=== PATIENT | male | born 1965 | race Caucasian/White ===

== ENCOUNTER 2018-06-09 12:20 | Emergency (ER) | payer OTHER, SELFPAY ==
[2018-06-09 12:21] VITALS: BMI 28.8
[2018-06-09 12:54] VITALS: BP 115/64; PULSE 75; RESP 16; O2SAT 100
--- NOTE | 2018-06-09 13:59 | ED PDOC ---
HPI: Male Pain Time Seen by Provider: 06/09/18 13:10 Chief Complaint (Nursing): Male Genitourinary Chief Complaint (Provider): External Hemorrhoid History Per: Patient History/Exam Limitations: no limitations Onset/Duration Of Symptoms: Days, Waxing/Waning Current Symptoms Are (Timing): Still Present Severity: Mild Pain Scale Rating Of: 4 Quality Of Discomfort: Sharp, Aching, "Pain" Associated Symptoms: denies: Fever, Chills, Nausea, Vomiting, Diarrhea Alleviating Factors: None (Pt presents to the ED complaining of exaccerbtion of external hemorrhoids that he has had for some period of time, but became inflammed yesterday after lifting a large and heavy box; pt has been treating the symptoms with OTC preparation H creame to date. The patient has no chronic or genetic systemic conditions. The patient is otherwise healthy) Past Medical History Reviewed: Historical Data, Nursing Documentation, Vital Signs Vital Signs: Last Vital Signs Temp 9.5 F L 06/09/18 12:52 Pulse 75 06/09/18 12:52 Resp 16 06/09/18 12:52 BP 115/64 06/09/18 12:52 Pulse Ox 100 06/09/18 12:52 - Medical History PMH: Hypercholesterolemia - Surgical History Surgical History: Appendectomy - Family History Family History: States: Unknown Family Hx - Home Medications Home Medications: Ambulatory Orders Medication Instructions Recorded Aspirin/Caffeine [Bc] 1 pow PO PRN PRN 04/27/14 Fish Oil [[place]-3] 2 tab PO DAILY 04/27/14 Multivitamin/Iron/Folic Acid 1 tab PO DAILY 04/27/14 [Centrum Complete Multivit Tab] Lidocaine HCl [Lidocaine Plus] 1 gm TP QID #120 gm 06/09/18 Psyllium Husk [Metamucil] 0.52 gm PO DAILY #60 capsule 06/09/18 - Allergies Allergies/Adverse Reactions: Allergies Allergy/AdvReac Type Severity Reaction Status Date / Time No Known Allergies Allergy Verified 04/26/14 16:34 Review of Systems ROS Statement: Except As Marked, All Systems Reviewed And Found Negative Gastrointestinal: Positive for: Rectal Pain Physical Exam - Reviewed Nursing Documentation Reviewed: Yes Vital Signs Reviewed: Yes - Physical Exam Appears: Positive for: Well, Non-toxic, Uncomfortable Head Exam: Positive for: ATRAUMATIC, NORMAL INSPECTION Skin: Positive for: Normal Color, Warm, Dry. Negative for: Diaphoresis, Pallor, Rash Eye Exam: Positive for: Normal appearance. Negative for: Nystagmus, Periorbital swelling, Periorbital tenderness Rectal: Positive for: Rectal Tone Is: (positive), Hemorrhoids (Pt has non- strangulated and non bleeding external hemorrhoid; ), Tenderness. Negative for: Black Stool - ECG O2 Sat by Pulse Oximetry: 100 Medical Decision Making Medical Decision Making: Hemorrhoid examined and digitally inserted with immediate relief The patient is stable and no further treatment is necessary in the ED Pt advised to follow up with PMD in 24-48 hours; return to ED if symptoms continue Disposition - Clinical Impression Clinical Impression: External hemorrhoid - Patient ED Disposition Is Patient to be Admitted: No Comment: The patient is stable and no further treatment is necessary in the ED. Pt advised to follow up with PMD in 24-48 hours; return to ED if symptoms continue Doctor Will See Patient In The: Office Counseled Patient/Family Regarding: Diagnosis, Need For Followup, Rx Given - Disposition Disposition: Routine/Home Disposition Time: 14:02 Condition: STABLE Prescriptions: Lidocaine HCl [Lidocaine Plus] 1 gm TP QID #120 gm Psyllium Husk [Metamucil] 0.52 gm PO DAILY #60 capsule Instructions: Hemorrhoids, Hemorrhoids (DC)
[2018-06-09 14:16] VITALS: TEMP 98.5
== END 2018-06-09 14:18 | disposition home or self-care (01) ==
LOC: H.ER 12:20
DX: K64.8 Other hemorrhoids (principal); E78.00 Pure hypercholesterolemia, unspecified